=== PATIENT | male | born 2000 | race African-American/Black ===

== ENCOUNTER 2020-09-02 08:21 | Emergency (ER) | payer OTHER ==
[2020-09-02] MEDS ORDERED: KETOROLAC 15 MG/ML VIAL IM STA (09:41)
--- NOTE | 2020-09-02 09:45 | ED Physician Documentation ---
History of Present Illness - Stated complaint Stated Complaint: MALE - Chief complaint Chief Complaint: General - History obtained from History obtained from: Patient - Additonal information Additional information: Patient complains of general malaise, chills, and some suprapubic pain with urination for the last 2 days. He denies any penile discharge. No nausea vomiting. No diarrhea. Patient states that he has not had any recent concerning sexual encounters. He has noticed some right testicular pain and a sense of swelling. No worsening with heavy lifting. No history of pathology. Patient is otherwise healthy and is not a diabetic. Review of Systems Ten Systems: 10 systems reviewed and negative Constitutional: reports: Reviewed and negative Eyes: reports: Reviewed and negative Ears: reports: Reviewed and negative Nose: reports: Reviewed and negative Throat: reports: Reviewed and negative Cardiac: reports: Reviewed and negative Respiratory: reports: Reviewed and negative GI: reports: Reviewed and negative : reports: Dysuria, Reviewed and negative Skin: reports: Reviewed and negative Musculoskeletal: reports: Reviewed and negative Neurologic: reports: Reviewed and negative Psychiatric: reports: Reviewed and negative Endocrine: reports: Reviewed and negative Immunocompromised: reports: Reviewed and negative PD PAST MEDICAL HISTORY - Past Medical History Past Medical History: Yes GI: GERD - Past Surgical History Past Surgical History: Yes General: Appendectomy Ortho: Other - Present Medications Home Medications: Ambulatory Orders Medication Instructions Recorded Confirmed Stomach Pill 09/02/20 Sulfamethox/Trimeth 800/160 1 each PO BID #14 tablet 09/02/20 [Bactrim Ds 800/160] - Allergies Allergies/Adverse Reactions: Allergies Allergy/AdvReac Type Severity Reaction Status Date / Time No Known Drug Allergies Allergy Verified 09/02/20 08:41 - Social History Does the pt smoke?: No Smoking Status: Never smoker Does the pt drink ETOH?: No Does the pt have substance abuse?: No - Immunizations Immunizations are current?: Yes PD ED PE NORMAL - Vitals Vital signs reviewed: Yes - General General: Alert and oriented X 3, No acute distress, Well developed/nourished - HEENT HEENT: Atraumatic, PERRL, EOMI, Moist mucous membranes - Neck Neck: Supple, no meningeal sign - Cardiac Cardiac: RRR, No murmur - Respiratory Respiratory: No respiratory distress, Clear bilaterally - Abdomen Abdomen: Soft, Non distended, Other (Mild epigastric and suprapubic tenderness, no rebound or guarding.) - Male Male : Other (Normal male genitalia. Circumcised. No gross enlargement of right versus left testicle, but right testicle is tender. No bulging in scrotum. Scrotal skin appears normal. 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, Normal speech - Psych Psych: Normal mood, Normal affect Results - Vitals Vitals: Vital Signs - 24 hr 09/02/20 09/02/20 08:30 11:22 Temperature 36.4 C L Heart Rate 92 90 Respiratory 16 16 Rate Blood Pressure 118/72 132/73 H O2 Saturation 98 Oxygen O2 Source Room air - Labs Labs: Laboratory Tests 09/02/20 09:40 Urine Color YELLOW Urine Clarity HAZY Urine pH 6.5 Ur Specific [place] 1.020 Urine Protein NEGATIVE Urine Glucose (UA) NEGATIVE Urine Ketones NEGATIVE Urine Occult Blood NEGATIVE Urine Nitrite NEGATIVE Urine Bilirubin NEGATIVE Urine Urobilinogen 0.2 (NORMAL) Ur Leukocyte Esterase TRACE H Urine RBC 0-5 Urine WBC 11-25 H Ur Epithelial Cells FEW Renal Tubular Ur Squamous Epith Cells NONE SEEN Urine Bacteria Moderate H Ur Microscopic Review INDICATED Urine Culture Comments INDICATED - Rads (name of study) Ultrasound testicles Radiology: Prelim report reviewed, See rad report (neg) PD MEDICAL DECISION MAKING - ED course Complexity details: reviewed results, re-evaluated patient, considered differential, d/w patient ED course: Patient was worked up with urinalysis and testicular ultrasound. Ultrasound was negative the patient was found to have a urinary tract infection. He was started on antibiotics for this in the emergency department and discharged on the same. Discussed the need for follow-up and the usual indications for return. Departure - Departure Disposition: 01 Home, Self Care Clinical Impression: Urinary tract infection Qualifiers: Urinary tract infection type: acute cystitis Hematuria presence: without hematuria Qualified Code(s): N30.00 - Acute cystitis without hematuria Condition: Stable Instructions: ED UTI Cystitis Male Prescriptions: Sulfamethox/Trimeth 800/160 [Bactrim Ds 800/160] 1 each PO BID #14 tablet Comments: Your ultrasound looks good. You do have a moderate urinary tract infection and have been started on antibiotics for this. Please take the antibiotics as directed until gone. Follow-up with your primary care physician if needed. Discharge Date/Time: 09/02/20 11:25
[2020-09-02 10:12] LABS: BILIRUBIN,URINE NEGATIVE (NEGATIVE); GLUCOSE, URINE (UA) NEGATIVE (NEGATIVE); KETONES,URINE (UA) NEGATIVE (NEGATIVE); LEUKOCYTE ESTERASE, URINE TRACE (NEGATIVE); NITRITE,URINE NEGATIVE (NEGATIVE); OCCULT BLOOD,URINE NEGATIVE (NEGATIVE); PH,URINE 6.5 PH (5.0-7.5); PROTEIN,URINE NEGATIVE (NEGATIVE); UROBILINOGEN,URINE 0.2 (NORMAL) E.U./dL (NORMAL)
[2020-09-02 10:34] LABS: CLARITY,URINE HAZY (CLEAR)
[2020-09-02 11:01] LABS: BACTERIA,URINE Moderate /HPF (None Seen); EPITHELIAL CELLS,UR FEW Renal Tubular /HPF (<= Few); RBC,URINE 0-5 /HPF (0-5); SQUAMOUS EPITHELIAL CELL,UR NONE SEEN (<= Few)
[2020-09-02] MEDS ORDERED: SULFAMETH/TRIMETH DS 800/160 MG TABLET PO STA (11:11)
[2020-09-02 11:22] VITALS: BP 132/73
--- NOTE | 2020-09-02 11:24 | Ultrasound Report ---
PROCEDURE: Testicle w/Doppler Limited INDICATIONS: R testicle pain/swelling TECHNIQUE: Real-time scanning was performed of the scrotum and testicles, with image documentation. Color and p ulse Doppler interrogation was performed of both testicles. COMPARISON: None. FINDINGS: Right: Testicle is normal in size at 5.1 x 1.7 x 3.1 cm, and homogenous in echotexture. Epididymis is normal in overall size and morphology. No hydrocele or varicoceles. Overlying scrotal skin is no rmal in thickness. Left: Testicle is normal in size at 5.1 x 1.7 x 2.6 cm, and homogeneous in echotexture. Epididymis is normal in overall size and morphology. No hydrocele or varicoceles. Overlying scrotal skin is no rmal in thickness. Doppler: Color and pulse Doppler demonstrate normal and symmetric arterial flow in both testicles. IMPRESSION: Unremarkable ultrasound examination of bilateral testes and scrotum. No evidence of testicular torsio n. No hydrocele. Reviewed by: Brain Bowie MD on 09/02/2020 11:23 AM PDT Approved by: Brain Bowie MD on 09/02/2020 11:23 AM PDT Station ID: [id number]
== END 2020-09-02 11:25 | disposition home or self-care (01) ==
LOC: ED 08:21
DX: N30.00 Acute cystitis without hematuria (principal)
CPT/HCPCS: 76870; 81001; 87086; 93976; 96372; 99284; A9270; 81003

== ENCOUNTER 2022-10-26 10:00 | Outpatient (CLI) | payer OTHER | END 2022-10-26 10:15 | disposition home or self-care (01) | LOC: LAB.N 10:00 | PROVIDERS: ATTEND Registered Nurse | DX: R19.7 Diarrhea, unspecified (principal); R14.1 Gas pain | CPT/HCPCS: 87045; 87046; 87177; 87209; 87329; 87427; 87493 ==